=== PATIENT | male | born 1965 | race Caucasian/White ===

== ENCOUNTER 2021-11-19 20:20 | Emergency (ER) | payer OTHER ==
[2021-11-19 20:40] VITALS: BP 114/79; PULSE 82; TEMP 98.7; BMI 27.6
[2021-11-19] MEDS ORDERED: CIPROFLOXACIN 500 MG TABLET (RESTRICTED TO ID) PO ONE (20:49)
[2021-11-19] MEDS ORDERED: CIPROFLOXACIN 250 MG TABLET (RESTRICTED TO ID) PO ONE (20:53)
== END 2021-11-19 21:01 | disposition home or self-care (01) ==
LOC: FER 20:20
DX: R31.9 Hematuria, unspecified (principal)
CPT/HCPCS: 81003; 81015; 87086; 99283-25